=== PATIENT | female | born 1990 | race American Indian/Alaskan Native ===

== ENCOUNTER 2017-12-24 20:08 | Emergency (ER) | payer MEDICAID, OTHER ==
[2017-12-24] MEDS ORDERED: Tetracaine HCl/PF 0.5% 4 ML Bottle EYERT ONE (21:04)
--- NOTE | 2017-12-24 21:31 | EDM.PDOC ---
ED HPI GENERAL MEDICAL PROBLEM - General Chief Complaint: Eye Problems Stated Complaint: R EYE INJURY Time Seen by Provider: 12/24/17 21:15 Source of Information: Reports: Patient, RN History Limitations: Reports: No Limitations - History of Present Illness INITIAL COMMENTS - FREE TEXT/NARRATIVE: 27 yo female here with R eye pain after being poked in the eye by her toddler son's finger. Has tearing and light sensitivity. Vision is blurry. Left her eye glasses in her car. Says he tetanus is UTD. Onset: Today Onset Date: 12/24/17 Onset Time: 20:30 Duration: Minutes:, Constant Location: Reports: Face (R eye) Quality: Reports: Burning Severity: Moderate Improves with: Reports: Other (eye closing) Worsens with: Reports: Other (lights) Context: Reports: Other (poked in R eye) Associated Symptoms: Reports: No Other Symptoms Treatments FLAT KNITTER: Reports: Other (see below) (none) - Related Data Allergies Allergy/AdvReac Type Severity Reaction Status Date / Time amoxicillin Allergy Other Verified 12/24/17 20:51 ibuprofen Allergy Nausea Verified 12/24/17 20:51 Home Meds: Home Meds Levothyroxine 1 tab PO DAILY 12/24/17 [History] 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: Endocrine/Metabolic History: Reports: Hypothyroidism - Infectious Disease History Infectious Disease History: Reports: Chicken Pox - Past Surgical History Endocrine Surgical History: Reports: None Social & Family History - Family History Family Medical History: Noncontributory - Tobacco Use Smoking Status *Q: Never Smoker - Caffeine Use Caffeine Use: Reports: Soda - Recreational Drug Use Recreational Drug Use: No ED ROS GENERAL - Review of Systems Review Of Systems: See Below Constitutional: Reports: No Symptoms HEENT: Reports: Eye Pain (Right), Rhinitis (runny nose and eye tearing) Respiratory: Reports: No Symptoms Cardiovascular: Reports: No Symptoms GI/Abdominal: Reports: No Symptoms : Reports: No Symptoms Skin: Reports: No Symptoms Neurological: Reports: No Symptoms ED EXAM GENERAL W FULL EYE - Physical Exam Exam: See Below Exam Limited By: No Limitations General Appearance: Alert, WD/WN, No Apparent Distress, Obese Eye Exam: Bilateral Eye: PERRL, Other (conjunctival injection OD, photophobia) With Correction: No Eyelids: Bilateral: Normal Appearance Conjunctiva & Sclera: Right: Injected Cornea Exam: Right: Corneal Abrasion, Examined with Flourescein Extraocular Movements: Bilateral: Intact Pupillary Size: Bilateral: 2 mm Pupillary Reaction: Bilateral: Brisk Ears: Normal External Exam, Hearing Grossly Normal Nose: Normal Inspection, Normal Mucosa, No Blood Head: Atraumatic, Normocephalic Neck: Normal Inspection Neurological: Alert, Oriented, CN II-XII Intact, Normal Cognition, No Motor/ Sensory Deficits Psychiatric: Normal Affect, Normal Mood Skin Exam: Warm, Dry, Intact, Normal Color, No Rash ED EYE w/ Add Procedure - Eye Procedure Alcaine Drops Administered: Yes (Tetracaine to R eye 2 drops) Progress: Flurescein staining reveals corneal abrasion extending from the pupil's lower edge and downward to the bottom of the cornea. Course - Vital Signs Last Recorded V/S: Last Vital Signs Temp 36.5 C 12/24/17 20:57 Pulse 82 12/24/17 20:57 Resp 18 12/24/17 20:57 BP 148/101 H 12/24/17 20:57 Pulse Ox 98 12/24/17 20:57 - Orders/Labs/Meds Meds: Medications Discontinued Medications Generic Name Dose Route Start Last Admin Trade Name Freq PRN Reason Stop Dose Admin Tetracaine HCl 0.5 ml 12/24/17 21:04 12/24/17 21:24 Tetracaine 0.5% Steri-Unit Marii EYERT 12/24/17 21:05 0.5 ml ASDIRECTED ONE Administration Departure - Departure Time of Disposition: 21:34 Disposition: Home, Self-Care 01 Condition: Good Clinical Impression: Corneal abrasion Qualifiers: Encounter type: initial encounter Laterality: right Qualified Code(s): S05.01XA - Injury of conjunctiva and corneal abrasion without foreign body, right eye, initial encounter - Discharge Information Referrals: Keren Man PA [Primary Care Provider] - Forms: ED Department Discharge Additional Instructions: No rubbing your right eye. Avoid bright lights. Take norco as needed for pain relief. May use the eye drops tonight only as needed to help you sleep. Recheck if not fully recovered in 24 hrs.
== END 2017-12-24 21:35 | disposition home or self-care (01) ==
LOC: JP.ED 20:08
DX: S05.01XA Injury of conjunctiva and corneal abrasion without foreign body, right eye, initial encounter (principal); Z88.1 Allergy status to other antibiotic agents; Z88.6 Allergy status to analgesic agent; W51.XXXA Accidental striking against or bumped into by another person, initial encounter
CPT/HCPCS: 99283; A9270

== ENCOUNTER 2020-06-25 16:45 | Emergency (ER) | payer MEDICAID ==
--- NOTE | 2020-06-25 17:37 | EDM.PDOC ---
ED HPI GENERAL MEDICAL PROBLEM - General Chief Complaint: Headache Stated Complaint: HEADACHE THAT WILL NOT GO AWAY Time Seen by Provider: 06/25/20 17:36 Source of Information: Reports: Patient, Family, RN Notes Reviewed History Limitations: Reports: No Limitations - History of Present Illness INITIAL COMMENTS - FREE TEXT/NARRATIVE: Margaux presents today for complaints of headache for 7 days. She states she was seen at another emergency room last night and was given two shots in her butt with two pills. She states the medications did not help her pain. Margaux reports frequent headaches that can make it difficulty to get her daily tasks done. She reports throbbing like pain from the top back of her head with radiation to eyes. She reports nausea, some photophobia and dizziness with her headaches. She denies tinnitus or change in vision. She denies fever, chills, vomiting, change in bowel/bladder or other concerns. She is unsure of her LMP - states she could be . She has a history of hyopthyroidism from , states she was not born with a thyroid. 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 Denies: Dental Pain, Ear Discharge, Ear Pain, Hearing Loss, Nose Pain, Rhinitis, Sinus Problem, Throat Pain, Vertigo Respiratory: Reports: No Symptoms Cardiovascular: Reports: No Symptoms Endocrine: Reports: No Symptoms GI/Abdominal: Reports: No Symptoms : Reports: No Symptoms Musculoskeletal: Reports: No Symptoms Skin: Reports: No Symptoms Neurological: Reports: Dizziness, Headache. Denies: Confusion, Numbness, Paresthesia, Pre-Existing Deficit, Seizure, Tingling, Tremors, Trouble Speaking, Difficulty Walking, Weakness, Change in Speech, Gait Disturbance Psychiatric: Reports: No Symptoms Hematologic/Lymphatic: Reports: No Symptoms Immunologic: Reports: No Symptoms - Physical Exam Exam: See Below Exam Limited By: No Limitations General Appearance: Alert, WD/WN, Mild Distress Eye Exam: Bilateral Eye: EOMI, Normal Inspection, PERRL Ears: Normal External Exam, Normal Canal, Hearing Grossly Normal, Normal TMs Nose: Normal Inspection, Normal Mucosa, No Blood Throat/Mouth: Normal Inspection, Normal Lips, Normal Teeth, Normal Gums, Normal Voice, No Airway Compromise Head Exam: Atraumatic, Normocephalic Neck: Normal Inspection, Supple, Non-Tender, Full Range of Motion, Other (spasms to posterior neck, trapezius). No: Lymphadenopathy (R), Lymphadenopathy (L) Respiratory/Chest: No Respiratory Distress, Lungs Clear, Normal Breath Sounds, No Accessory Muscle Use, Chest Non-Tender. No: Crackles, Rales, Rhonchi, Wheezing Cardiovascular: Normal Peripheral Pulses, Regular Rate, Rhythm, No Edema, No Murmur, No Rub Neuro Exam (Abbreviated): Alert, Oriented, Normal Cognition, Normal Gait, Normal Reflexes, No Motor/Sensory Deficits, Other (no nuchal rigidity, negative Brudzinski. ) DTR: 2+: Patella (R), Patella (L) Back Exam: Normal Inspection, Full Range of Motion, Muscle Spasm (cervical and trapezius). No: CVA Tenderness (R), CVA Tenderness (L) Extremities: Normal Inspection, Normal Range of Motion, Non-Tender, No Pedal Edema, Normal Capillary Refill Psychiatric: Normal Affect, Normal Mood Skin Exam: Warm, Dry, Intact, Normal Color, No Rash Course - Vital Signs Last Recorded V/S: Last Vital Signs Temp 36.4 C 06/25/20 17:29 Pulse 92 06/25/20 17:29 Resp 14 06/25/20 17:29 BP 152/96 H 06/25/20 17:29 Pulse Ox 98 06/25/20 17:29 - Orders/Labs/Meds Orders: Active Orders 24 hr Category Date Time Status Saline Lock Insert [OM.PC] Routine Oth 06/25/20 17:58 Ordered Labs: Laboratory Tests 06/25/20 06/25/2006/25/20 Range/Units 18:05 18:06 18:06 WBC (4.5-11.0) K/uL RBC (3.30-5.50) M/uL Hgb (12.0-15.0) g/dL Hct (36.0-48.0) % MCV (80-98) fL MCH (27-31) pg MCHC (32-36) % Plt Count (150-400) K/uL Neut % (Auto) (36-66) % Lymph % (Auto) (24-44) % [place] % (Auto) (2-6) % Eos % (Auto) (2-4) % Baso % (Auto) (0-1) % Sodium (140-148) mmol/L Potassium (3.6-5.2) mmol/L Chloride (100-108) mmol/L Carbon Dioxide (21-32) mmol/L Anion Gap (5.0-14.0) mmol/L BUN (7-18) mg/dL Creatinine (0.6-1.0) mg/dL Est Cr Clr Drug Dosing mL/min Estimated GFR (MDRD) (>60) Glucose (74-106) mg/dL Calcium (8.5-10.1) mg/dL C-Reactive Protein 1.84 H (0.0-0.3) mg/dL TSH, Ultra Sensitive (0.358-3.740) uIU/mL Urine Color Yellow (YELLOW) Urine Appearance Clear (CLEAR) Urine pH 6.0 (5.0-8.0) Ur Specific [place] > 1.030 (1.008-1.030) Urine Protein Negative (NEGATIVE) mg/dL Urine Glucose (UA) Negative (NEGATIVE) mg/dL Urine Ketones Negative (NEGATIVE) mg/dL Urine Occult Blood Negative (NEGATIVE) Urine Nitrite Negative (NEGATIVE) Urine Bilirubin Negative (NEGATIVE) Urine Urobilinogen 0.2 (0.2-1.0) EU/dL Ur Leukocyte Esterase Negative (NEGATIVE) Urine RBC Not seen (0-5) Urine WBC Not seen (0-5) Ur Epithelial Cells Moderate Urine Bacteria Not seen Urine HCG, Qual Negative 06/25/20 06/25/20 Range/Units 18:14 18:14 WBC 15.0 H (4.5-11.0) K/uL RBC 5.06 (3.30-5.50) M/uL Hgb 11.2 L (12.0-15.0) g/dL Hct 37.4 (36.0-48.0) % MCV 74 L (80-98) fL MCH 22 L (27-31) pg MCHC 30 L (32-36) % Plt Count 472 H (150-400) K/uL Neut % (Auto) 66 (36-66) % Lymph % (Auto) 25 (24-44) % [place] % (Auto) 7 H (2-6) % Eos % (Auto) 2 (2-4) % Baso % (Auto) 0 (0-1) % Sodium 137 L (140-148) mmol/L Potassium 4.1 (3.6-5.2) mmol/L Chloride 102 (100-108) mmol/L Carbon Dioxide 26 (21-32) mmol/L Anion Gap 13.1 (5.0-14.0) mmol/L BUN 20 H (7-18) mg/dL Creatinine 0.8 (0.6-1.0) mg/dL Est Cr Clr Drug Dosing 105.61 mL/min Estimated GFR (MDRD) > 60 (>60) Glucose 126 H (74-106) mg/dL Calcium 9.2 (8.5-10.1) mg/dL C-Reactive Protein (0.0-0.3) mg/dL TSH, Ultra Sensitive 9.710 H (0.358-3.740) uIU/mL Urine Color (YELLOW) Urine Appearance (CLEAR) Urine pH (5.0-8.0) Ur Specific [place] (1.008-1.030) Urine Protein (NEGATIVE) mg/dL Urine Glucose (UA) (NEGATIVE) mg/dL Urine Ketones (NEGATIVE) mg/dL Urine Occult Blood (NEGATIVE) Urine Nitrite (NEGATIVE) Urine Bilirubin (NEGATIVE) Urine Urobilinogen (0.2-1.0) EU/dL Ur Leukocyte Esterase (NEGATIVE) Urine RBC (0-5) Urine WBC (0-5) Ur Epithelial Cells Urine Bacteria Urine HCG, Qual Patient lab work reviewed with Dr. Dempsey and patient. WBC, CRP elevated which can be secondary to migraine status for 7 days. Neurological status intact, no recent infections. Patient and Dr. Dempsey are in agreement with plan. Headache in alert, oriented 29 year old female who is neurologically intact, OTC medications and interventions from last night emergency room visit did not help with pain. IV normal saline, benadryl, reglan, acetaminophen and diazepam administered in the emergency room with good relief of pain. Patient will be discharged to home. Meds: Medications Discontinued Medications Generic Name Dose Route Start Last Admin Trade Name Marcelinoq PRN Reason Stop Dose Admin Acetaminophen 1,000 mg 06/25/20 18:02 06/25/20 18:20 Tylenol Extra Strength PO 06/25/20 18:03 1,000 mg ONETIME ONE Administration Diazepam 5 mg 06/25/20 19:39 06/25/20 19:47 Valium IVPUSH 06/25/20 19:40 5 mg ONETIME ONE Administration Diphenhydramine HCl 25 mg 06/25/20 18:00 06/25/20 18:17 Benadryl IVPUSH 06/25/20 18:01 25 mg ONETIME ONE Administration Sodium Chloride 1,000 mls @ 999 mls/hr 06/25/20 18:30 06/25/20 18:25 Normal Saline IV 999 mls/hr ASDIRECTED WHIT Administration Sodium Chloride 1,000 mls @ 150 mls/hr 06/25/20 18:45 06/25/20 19:06 Normal Saline IV 150 mls/hr ASDIRECTED WHIT Administration Sodium Chloride 1,000 mls @ 150 mls/hr 06/25/20 19:15 Normal Saline IV ASDIRECTED WHIT Metoclopramide HCl 5 mg 06/25/20 18:00 06/25/20 18:18 Reglan IVPUSH 06/25/20 18:01 5 mg ONETIME ONE Administration Sodium Chloride 10 ml 06/25/20 17:58 06/25/20 18:11 Saline Flush FLUSH 10 ml ASDIRECTED PRN Administration Keep Vein Open Sumatriptan Succinate 6 mg 06/25/20 18:54 06/25/20 19:03 Imitrex SUBCUT 06/25/20 18:55 6 mg ONETIME ONE Administration - Re-Assessments/Exams Free Text/Narrative Re-Assessment/Exam: 06/25/20 18:57 Margaux reports pain is now a 5 from a 03/18. Patient lab work reviewed with her, all her questions were answered. We will try imitrex for her headache/migraine. 06/25/20 19:41 Margaux reports headache is now a 4/10 and she is feeling better. We will administer valium 5mg IV. Departure - Departure Time of Disposition: 20:20 Disposition: Home, Self-Care 01 Condition: Good Clinical Impression: Migraine - Discharge Information *PRESCRIPTION DRUG MONITORING PROGRAM REVIEWED*: Not Applicable *COPY OF PRESCRIPTION DRUG MONITORING REPORT IN PATIENT VINCE: Not Applicable Instructions: Migraine Headache, [id number] Referrals: PCP,None [Primary Care Provider] - Forms: ED Department Discharge Additional Instructions: You have been evaluated and treated for a migraine. While in the emergency room you were given IV normal saline fluids, IV reglan for nausea, acetaminophen by mouth for pain, Imitrex injection for pain and valium IV for muscle spasms of trapezius. Drink plenty of water to stay hydrated. Take naproxen 500mg by mouth with food at the first sign of a headache/migraine and rest. If nausea, develops then take phenergen 25mg by mouth. You can also take flexeril 10mg for muscle spasms. Follow up with primary provider in 3 to 7 days for a recheck. Track and monitor migraines. If any worsening occurs return to the emergency room. Sepsis Event Note (ED) - Evaluation Sepsis Screening Result: No Definite Risk - Focused Exam Vital Signs: Vital Signs Temp Pulse Resp BP Pulse Ox 06/25/20 17:29 36.4 C 92 14 152/96 H 98 - My Orders Last 24 Hours: My Active Orders 06/25/20 17:58 Saline Lock Insert [OM.PC] Routine - Assessment/Plan Last 24 Hours: My Active Orders 06/25/20 17:58 Saline Lock Insert [OM.PC] Routine Assessment:: Migraine Plan: Patient evaluated and treated for a migraine. While in the emergency room she was given IV normal saline fluids, IV reglan for nausea, acetaminophen by mouth for pain, Imitrex injection for pain and valium IV for muscle spasms of trapezius. Improvement noted. Patient can drink plenty of water to stay hydrated. Take naproxen 500mg by mouth with food at the first sign of a headache/migraine and rest. If nausea, develops then take phenergen 25mg by mouth. She can also take flexeril 10mg for muscle spasms. Follow up with primary provider in 3 to 7 days for a recheck. Track and monitor migraines. If any worsening occurs return to the emergency room.
[2020-06-25] MEDS ORDERED: Sodium Chloride 0.9% 10 ML Syringe FLUSH PRN (17:58)
[2020-06-25] MEDS ORDERED: diphenhydrAMINE 50 MG/ML SDV IVPUSH ONE (18:00)
[2020-06-25] MEDS ORDERED: Metoclopramide 10 MG/2 ML SDV IVPUSH ONE (18:00)
[2020-06-25] MEDS ORDERED: Acetaminophen 500 MG Tab PO ONE (18:02)
[2020-06-25] MEDS ORDERED: Sodium Chloride 0.9% 1,000 ML IV SCH ×3 (18:30→19:15)
[2020-06-25] MEDS ORDERED: SUMAtriptan 6 MG/0.5 ML SDV SUBCUT ONE (18:54)
== END 2020-06-25 20:37 | disposition home or self-care (01) ==
LOC: JP.ED 16:45
DX: G43.909 Migraine, unspecified, not intractable, without status migrainosus (principal); E03.9 Hypothyroidism, unspecified; M62.830 Muscle spasm of back; Z88.1 Allergy status to other antibiotic agents; Z88.6 Allergy status to analgesic agent; Z79.899 Other long term (current) drug therapy
CPT/HCPCS: 36415; 80048; 81001; 81025; 84443; 85025; 86140; 96372; 96374; 96375; 99283; A9270; J1200; J2765; J3030; J3360; J7030

== ENCOUNTER → 2021-11-28 | Day surgery (SDC) | payer MEDICAID ==
[~2021-11-28] MED LIST: Acetaminophen 500 MG Tab PO ONE; Celecoxib 200 MG Cap PO ONE; Dexamethasone 4 MG/ML SDV ONE; Dextrose 5%-Lactated Ringers 1,000 ML IV SCH; Glycopyrrolate 0.2 MG/ML 5 ML MDV ONE; Ketamine 19 MG in Sodium Chloride 0.9% 19.81 ML IV SCH; Ketamine 20 MG in Sodium Chloride 0.9% 19.8 ML IV SCH; Ketamine 500 MG/5 ML MDV IV SCH; Lactated Ringers 0 ML ONE; Neostigmine Methylsulfate 1 MG/ML 5 ML Syringe ONE; Ondansetron 4 MG/2 ML SDV ONE; Propofol 200 MG/20 ML SDV ONE; Rocuronium 50 MG/5 ML Vial ONE; Scopolamine 1.5 MG Transdermal Patch TOP ONE; Scopolamine 1.5 MG Transdermal Patch TOP SCH; Succinylcholine 200 MG/10 ML MDV ONE; cefOXitin 2 GM Vial ONE; cefOXitin 2 GM in Sodium Chloride 0.9% 50 ML IV ONE; fentaNYL 250 MCG/5 ML SDV ONE
== END ==
LOC: JP.SDS 08:38
PROVIDERS: ATTEND Surgery
DX: E66.01 Morbid (severe) obesity due to excess calories (principal); G47.30 Sleep apnea, unspecified; E03.9 Hypothyroidism, unspecified; D50.9 Iron deficiency anemia, unspecified; Z88.0 Allergy status to penicillin; Z88.8 Allergy status to other drugs, medicaments and biological substances; Z88.6 Allergy status to analgesic agent; Z68.45 Body mass index [BMI] 70 or greater, adult; Z79.890 Hormone replacement therapy; Z79.84 Long term (current) use of oral hypoglycemic drugs; Z79.899 Other long term (current) drug therapy; Z87.891 Personal history of nicotine dependence; Z53.09 Procedure and treatment not carried out because of other contraindication
CPT/HCPCS: 36415; 81025; 82947; 83036; 83735; 84100; 84443; 86850; 86900; 86901; A9270; J7121; J0330; J0694; J1100; J2405; J2704; J2710; J3010; J3490; J7120

== ENCOUNTER 2021-11-30 08:06 | Inpatient (IN) | payer MEDICAID ==
[~2021-11-30 08:06] MED LIST changes: -Dextrose 5%-Lactated Ringers 1,000 ML IV SCH; -Ketamine 19 MG in Sodium Chloride 0.9% 19.81 ML IV SCH; -Ketamine 20 MG in Sodium Chloride 0.9% 19.8 ML IV SCH; -Ketamine 500 MG/5 ML MDV IV SCH; -Lactated Ringers 0 ML ONE; +Lactated Ringers 1,000 ML ONE; -Scopolamine 1.5 MG Transdermal Patch TOP ONE; -Scopolamine 1.5 MG Transdermal Patch TOP SCH; +Scopolamine 1.5 MG Transdermal Patch TRDERM SCH; -cefOXitin 2 GM in Sodium Chloride 0.9% 50 ML IV ONE
[2021-11-30] MEDS ORDERED: Dextrose 5%-Lactated Ringers 1,000 ML IV SCH (08:30)
[2021-11-30 08:48] LABS: HEMOGLOBIN A1C 6.9 % (4.5-6.2)
[2021-11-30] MEDS ORDERED: cefOXitin 2 GM in Sodium Chloride 0.9% 50 ML IV ONE (09:15)
[2021-11-30] MEDS ORDERED: Ketamine 19 MG in Sodium Chloride 0.9% 19.81 ML IV SCH (09:30)
[2021-11-30] MEDS ORDERED: Ketamine 500 MG/5 ML MDV IV SCH (09:30)
[2021-11-30] MEDS ORDERED: Propofol 200 MG/20 ML SDV ONE (09:49)
[2021-11-30] MEDS ORDERED: fentaNYL 250 MCG/5 ML SDV ONE ×2 (10:07→15:10)
[2021-11-30] MEDS ORDERED: Rocuronium 50 MG/5 ML Vial ONE (10:07)
[2021-11-30] MEDS ORDERED: Labetalol 20 MG/4 ML Syringe ONE ×2 (11:50→15:32)
[2021-11-30] MEDS ORDERED: Sugammadex Sodium 200 MG/2 ML VIAL ONE (12:33)
[2021-11-30] MEDS ORDERED: fentaNYL 100 MCG/2 ML SDV IVPUSH ONE (12:55)
[2021-11-30] MEDS ORDERED: hydrOXYzine HCL 100 MG/2 ML SDV IM ONE (12:55)
[2021-11-30] MEDS: Lactated Ringers 1,000 ML IV SCH ×2 (13:56→23:32)
[2021-11-30] MEDS: Dextrose 5%-Lactated Ringers 1,000 ML IV SCH (13:56)
[2021-11-30] MEDS ORDERED: hydrOXYzine HCL 100 MG/2 ML SDV IM PRN (15:00)
[2021-11-30] MEDS ORDERED: HYDROmorphone 0.5 MG/0.5 ML Syringe IVPUSH PRN (15:00)
[2021-11-30] MEDS ORDERED: Labetalol 20 MG/4 ML Syringe IVPUSH PRN (15:00)
[2021-11-30] MEDS ORDERED: HYDROmorphone 1 MG/ML Syringe IV PRN (15:00)
[2021-11-30] MEDS ORDERED: diphenhydrAMINE 50 MG/ML SDV IVPUSH PRN (15:00)
[2021-11-30] MEDS ORDERED: Acetaminophen 500 MG Tab PO PRN (15:00)
[2021-11-30] MEDS ORDERED: Pantoprazole 40 MG Vial IVPUSH SCH (15:00)
[2021-11-30] MEDS ORDERED: MVI, Adult with Vitamin K 10 ML, Thiamine 200 MG, Zinc/Copper/Manganese/Selenium 1 ML i... IV SCH ×4 (16:00)
[2021-11-30] MEDS: oxyCODONE 5 MG Tab PO PRN (16:08)
[2021-11-30] MEDS: Ondansetron 4 MG/2 ML SDV IVPUSH PRN ×2 (16:11→21:36)
[2021-11-30] MEDS: cefOXitin 2 GM in Sodium Chloride 0.9% 50 ML IV SCH ×2 (16:11→21:36)
[2021-11-30] MEDS: Cyclobenzaprine 10 MG Tab PO PRN (16:11)
[2021-11-30] MEDS: Acetaminophen 500 MG Tab PO SCH ×2 (16:15→23:36)
[2021-11-30] MEDS: Insulin Lispro 100 Unit/ML 3 ML KwikPen SUBCUT SCH ×2 (16:33→21:52)
[2021-11-30] MEDS: Heparin Sodium 5,000 Units/ML Vial SUBCUT SCH (17:29)
[2021-12-01] MEDS: oxyCODONE 5 MG Tab PO PRN (01:15)
[2021-12-01] MEDS: Dextrose 5%-Lactated Ringers 1,000 ML IV SCH (01:18)
[2021-12-01] MEDS: Cyclobenzaprine 10 MG Tab PO PRN ×3 (03:02→21:47)
[2021-12-01] MEDS: cefOXitin 2 GM in Sodium Chloride 0.9% 50 ML IV SCH ×4 (03:02→21:52)
[2021-12-01] MEDS ORDERED: Iopamidol 612 MG/ML 50 ML SDV PO STA (03:09)
[2021-12-01] MEDS: Metoclopramide 10 MG/2 ML SDV IVPUSH PRN ×3 (04:08→17:56)
[2021-12-01] MEDS: Insulin Lispro 100 Unit/ML 3 ML KwikPen SUBCUT SCH ×4 (04:58→21:49)
[2021-12-01] MEDS: Heparin Sodium 5,000 Units/ML Vial SUBCUT SCH ×2 (05:12→18:04)
[2021-12-01] MEDS: LEVOTHYROXINE PO SCH ×2 (07:24)
[2021-12-01] MEDS: Acetaminophen 500 MG Tab PO SCH ×3 (07:25→23:08)
[2021-12-01] MEDS: Ondansetron 4 MG/2 ML SDV IVPUSH PRN ×3 (08:07→23:28)
[2021-12-01] MEDS: Celecoxib 200 MG Cap PO SCH ×2 (08:08→21:47)
[2021-12-01] MEDS: traMADol 50 MG Tab PO PRN ×2 (08:08→13:56)
[2021-12-01] MEDS: Lactated Ringers 1,000 ML IV SCH ×2 (08:09→14:39)
[2021-12-01] MEDS: SCOPOLAMINE PATCH CHECK TOP SCH (08:18)
[2021-12-01] MEDS ORDERED: MVI, Adult with Vitamin K 10 ML, Thiamine 200 MG, Zinc/Copper/Manganese/Selenium 1 ML i... IV SCH ×4 (16:00)
[2021-12-01] MEDS: Pantoprazole 40 MG Delayed-Release Granules 1 Packet PO SCH (16:15)
[2021-12-02] MEDS: Lactated Ringers 1,000 ML IV SCH ×2 (03:07→13:59)
[2021-12-02] MEDS: Insulin Lispro 100 Unit/ML 3 ML KwikPen SUBCUT SCH (04:30)
[2021-12-02] MEDS: Heparin Sodium 5,000 Units/ML Vial SUBCUT SCH ×2 (05:02→17:48)
[2021-12-02] MEDS: LEVOTHYROXINE PO SCH ×2 (07:36)
[2021-12-02] MEDS: Metoclopramide 10 MG/2 ML SDV IVPUSH SCH ×3 (08:11→20:19)
[2021-12-02] MEDS: Acetaminophen 500 MG Tab PO SCH ×2 (08:12→15:50)
[2021-12-02] MEDS: SCOPOLAMINE PATCH CHECK TOP SCH (08:46)
[2021-12-02] MEDS: Celecoxib 200 MG Cap PO SCH ×2 (08:51→20:18)
[2021-12-02] MEDS ORDERED: Cyanocobalamin (Vitamin B12) 1,000 MCG/ML SDV IM ONE (09:00)
[2021-12-02] MEDS: Pantoprazole 40 MG Delayed-Release Granules 1 Packet PO SCH (15:50)
[2021-12-02] MEDS ORDERED: diphenhydrAMINE 50 MG/ML SDV IVPUSH PRN (17:10)
[2021-12-02] MEDS ORDERED: Cyclobenzaprine 10 MG Tab ONE (17:45)
[2021-12-02] MEDS ORDERED: oxyCODONE 5 MG Tab ONE (17:45)
[2021-12-02] MEDS: oxyCODONE 5 MG Tab PO PRN (17:48)
[2021-12-02] MEDS: Cyclobenzaprine 10 MG Tab PO PRN (17:48)
[2021-12-03] MEDS: Acetaminophen 500 MG Tab PO SCH ×2 (00:08→07:27)
[2021-12-03] MEDS: Lactated Ringers 1,000 ML IV SCH (00:10)
[2021-12-03] MEDS: Metoclopramide 10 MG/2 ML SDV IVPUSH SCH ×2 (02:44→07:27)
[2021-12-03] MEDS: Heparin Sodium 5,000 Units/ML Vial SUBCUT SCH (05:06)
[2021-12-03] MEDS: LEVOTHYROXINE PO SCH ×2 (07:26)
[2021-12-03] MEDS: Celecoxib 200 MG Cap PO SCH (08:25)
[2021-12-03] MEDS ORDERED: Magnesium Hydroxide 400 MG/5 ML Susp 30 ML Cup PO ONE (09:00)
== END 2021-12-03 10:35 | disposition home or self-care (01) | DRG 621 ==
LOC: JP.SDS 08:06 → JP.MS 08:06 → EDSTATUS 12:45 → JP.MS 12-02 17:26
PROVIDERS: ADMIT Surgery; ATTEND Surgery
PROC: 0D194ZB Bypass Duodenum to Ileum, Percutaneous Endoscopic Approach (ICD-10-PCS; principal; 2021-11-30)
PROC: 0FB24ZX Excision of Left Lobe Liver, Percutaneous Endoscopic Approach, Diagnostic (ICD-10-PCS; 2021-11-30)
PROC: 0BQT4ZZ Repair Diaphragm, Percutaneous Endoscopic Approach (ICD-10-PCS; 2021-11-30)
DX: E66.01 Morbid (severe) obesity due to excess calories (principal); R16.0 Hepatomegaly, not elsewhere classified; K44.9 Diaphragmatic hernia without obstruction or gangrene; E03.1 Congenital hypothyroidism without goiter; F41.9 Anxiety disorder, unspecified; F32.A Depression, unspecified; G47.39 Other sleep apnea; E11.9 Type 2 diabetes mellitus without complications; E03.9 Hypothyroidism, unspecified; D50.9 Iron deficiency anemia, unspecified; Z88.0 Allergy status to penicillin; Z88.6 Allergy status to analgesic agent; Z88.8 Allergy status to other drugs, medicaments and biological substances; Z79.890 Hormone replacement therapy; Z79.84 Long term (current) use of oral hypoglycemic drugs; Z79.899 Other long term (current) drug therapy; Z87.891 Personal history of nicotine dependence; Z68.45 Body mass index [BMI] 70 or greater, adult
CPT/HCPCS: 36415; 74240; 74240-26; 80053; 82947; 83036; 83735; 84100; 84443; 85027; 86850; 86900; 86901; A9270-GY; C9113; J0171; J0330; J0694; J1100; J1644; J2405; J2704; J2710; J2765; J2795; J3010; J3410; J3411; J3420; J3490; J7120; J7121; Q9967

== ENCOUNTER 2022-01-18 16:24 | Emergency (ER) | payer MEDICAID ==
[2022-01-18] MEDS ORDERED: Ampicillin/Sulbactam Na 3 GM in Sodium Chloride 0.9% 100 ML IV ONE (17:25)
[2022-01-18] MEDS ORDERED: methylPREDNISolone Sodium Succinate 125 MG/2 ML SDV IVPUSH ONE (17:25)
[2022-01-18] MEDS ORDERED: Pantoprazole 40 MG Vial IVPUSH ONE (17:28)
[2022-01-18] MEDS ORDERED: Alum Hydrox/Mag Hydrox/Simeth 15 ML, Lidocaine 2% 15 ML PO ONE ×2 (17:29)
[2022-01-18] MEDS ORDERED: Sodium Chloride 0.9% 1,000 ML IV SCH (17:30)
== END 2022-01-18 19:18 | disposition home or self-care (01) ==
LOC: JP.ED 16:24
DX: J03.00 Acute streptococcal tonsillitis, unspecified (principal); E03.9 Hypothyroidism, unspecified; Z88.0 Allergy status to penicillin; Z88.8 Allergy status to other drugs, medicaments and biological substances; Z79.899 Other long term (current) drug therapy
CPT/HCPCS: 96365; 96375; 99283; A9270; C9113; J0295; J2930; J7030; 99282

== ENCOUNTER → 2022-06-18 | Day surgery (SDC) | payer MEDICAID ==
[~2022-06-18] MED LIST changes: +Bupivacaine 0.5% 50 ML MDV ONE; -Celecoxib 200 MG Cap PO ONE; -Dexamethasone 4 MG/ML SDV ONE; +Dextrose 5%-Lactated Ringers 1,000 ML IV SCH; -Glycopyrrolate 0.2 MG/ML 5 ML MDV ONE; -Lactated Ringers 1,000 ML ONE; +Lidocaine 1% with EPINEPHrine 1:100,000 50 ML MDV ONE; +Midazolam 1 MG/ML 2 ML SDV ONE; -Neostigmine Methylsulfate 1 MG/ML 5 ML Syringe ONE; -Ondansetron 4 MG/2 ML SDV ONE; -Rocuronium 50 MG/5 ML Vial ONE; -Scopolamine 1.5 MG Transdermal Patch TRDERM SCH; -Succinylcholine 200 MG/10 ML MDV ONE; +ceFAZolin 2 GM in Sodium Chloride 0.9% 50 ML IV ONE; -cefOXitin 2 GM Vial ONE; +fentaNYL 100 MCG/2 ML SDV ONE; -fentaNYL 250 MCG/5 ML SDV ONE
== END ==
LOC: JP.SDS 06:00
PROVIDERS: ATTEND Surgery
DX: Z30.46 Encounter for surveillance of implantable subdermal contraceptive (principal); F41.9 Anxiety disorder, unspecified; F32.A Depression, unspecified; E11.9 Type 2 diabetes mellitus without complications; G47.33 Obstructive sleep apnea (adult) (pediatric); Z79.899 Other long term (current) drug therapy; Z98.890 Other specified postprocedural states; Z88.6 Allergy status to analgesic agent; Z88.8 Allergy status to other drugs, medicaments and biological substances
CPT/HCPCS: 11976; 76000; 81025; A9270; J0690; J2250; J2704; J3010; J3490; J7121

== ENCOUNTER 2022-07-08 07:33 | Emergency (ER) | payer MEDICAID ==
[2022-07-08] MEDS: Ketorolac 30 MG/ML SDV IM ONE (08:34)
[2022-07-08 08:50] LABS: ESTIMATED GFR 102 mL/min (>60)
== END 2022-07-08 09:24 | disposition home or self-care (01) ==
LOC: JP.ED 07:33
DX: M25.512 Pain in left shoulder (principal); I10 Essential (primary) hypertension; Z88.8 Allergy status to other drugs, medicaments and biological substances; Z88.6 Allergy status to analgesic agent; Z79.899 Other long term (current) drug therapy; Z86.16 Personal history of COVID-19; Z87.891 Personal history of nicotine dependence
CPT/HCPCS: 36415; 73030; 80053; 83605; 83690; 85025; 96372; 99283; J1885

== ENCOUNTER 2022-09-27 07:08 | Inpatient (IN) | payer MEDICAID ==
[~2022-09-27 07:08] MED LIST changes: -Dextrose 5%-Lactated Ringers 1,000 ML IV SCH; -Midazolam 1 MG/ML 2 ML SDV ONE; -Propofol 200 MG/20 ML SDV ONE; +Scopolamine 1.5 MG Transdermal Patch TRDERM ONE; -ceFAZolin 2 GM in Sodium Chloride 0.9% 50 ML IV ONE; -fentaNYL 100 MCG/2 ML SDV ONE
[2022-09-27] MEDS ORDERED: Meropenem 500 MG SDV ONE (07:11)
[2022-09-27] MEDS ORDERED: diphenhydrAMINE 50 MG/ML SDV IVPUSH PRN (07:44)
[2022-09-27] MEDS ORDERED: Ondansetron 4 MG/2 ML SDV IVPUSH PRN ×2 (07:44→12:22)
[2022-09-27] MEDS ORDERED: Naloxone 0.4 MG/ML SDV IVPUSH PRN (07:44)
[2022-09-27] MEDS ORDERED: diphenhydrAMINE 25 MG Cap PO PRN (07:44)
[2022-09-27] MEDS ORDERED: Propofol 200 MG/20 ML SDV ONE (07:58)
[2022-09-27] MEDS ORDERED: fentaNYL 250 MCG/5 ML SDV ONE (07:58)
[2022-09-27] MEDS ORDERED: Dexamethasone 4 MG/ML SDV ONE (07:58)
[2022-09-27] MEDS ORDERED: Succinylcholine 200 MG/10 ML MDV ONE (07:58)
[2022-09-27] MEDS ORDERED: Neostigmine Methylsulfate 1 MG/ML 5 ML Syringe ONE (07:58)
[2022-09-27] MEDS ORDERED: Ondansetron 4 MG/2 ML SDV ONE (07:58)
[2022-09-27] MEDS ORDERED: Rocuronium 50 MG/5 ML Vial ONE (07:58)
[2022-09-27] MEDS ORDERED: Glycopyrrolate 0.2 MG/ML 5 ML MDV ONE (07:58)
[2022-09-27] MEDS ORDERED: Dextrose 5%-Lactated Ringers 1,000 ML IV SCH ×2 (08:00→12:15)
[2022-09-27] MEDS ORDERED: cefOXitin 2 GM in Sodium Chloride 0.9% 50 ML IV ONE (08:45)
[2022-09-27] MEDS ORDERED: Ketoconazole 2% Crm 30 GM Tube ONE (09:29)
[2022-09-27] MEDS ORDERED: Ketamine 20 MG in Sodium Chloride 0.9% 19.8 ML IV SCH (09:30)
[2022-09-27] MEDS ORDERED: Ketamine 500 MG/5 ML MDV IV SCH (09:30)
[2022-09-27] MEDS ORDERED: ePHEDrine 50 MG/ML SDV ONE (09:48)
[2022-09-27] MEDS ORDERED: Sodium Chloride 0.9% 10 ML ONE (09:48)
[2022-09-27] MEDS: HYDROmorphone/Normal Saline 6 MG/30 ML PCA Vial IV PRN (09:50)
[2022-09-27] MEDS ORDERED: fentaNYL 100 MCG/2 ML SDV ONE (10:32)
[2022-09-27] MEDS ORDERED: Lactated Ringers 1,000 ML ONE (10:34)
[2022-09-27] MEDS: Potassium Phos in 0.9 % NaCl 15 MMOL in Premix Bag 1 BAG IV SCH ×6 (12:37→19:41)
[2022-09-27] MEDS: Acetaminophen 500 MG Tab PO SCH ×2 (14:21→19:40)
[2022-09-27] MEDS: Pantoprazole 40 MG Vial IV SCH (14:21)
[2022-09-27] MEDS: cefOXitin 2 GM in Sodium Chloride 0.9% 50 ML IV SCH ×2 (16:09→22:35)
[2022-09-27] MEDS: Heparin Sodium 5,000 Units/ML Vial SUBCUT SCH (19:50)
[2022-09-28] MEDS: SODIUM CHLORIDE 0.9% IV SCH ×2 (00:01→01:29)
[2022-09-28] MEDS: POTASSIUM ACETATE IV SCH ×2 (00:01→01:29)
[2022-09-28] MEDS: Acetaminophen 500 MG Tab PO SCH ×4 (01:30→20:46)
[2022-09-28] MEDS: Heparin Sodium 5,000 Units/ML Vial SUBCUT SCH ×3 (03:07→18:35)
[2022-09-28] MEDS: cefOXitin 2 GM in Sodium Chloride 0.9% 50 ML IV SCH ×3 (03:13→15:35)
[2022-09-28] MEDS: HYDROmorphone/Normal Saline 6 MG/30 ML PCA Vial IV PRN (04:01)
[2022-09-28 04:46] LABS: ESTIMATED GFR 78 mL/min (>60)
[2022-09-28] MEDS ORDERED: Lactated Ringers 500 ML IV SCH (07:45)
[2022-09-28] MEDS: Cyanocobalamin (Vitamin B12) 1,000 MCG/ML SDV IM SCH (08:24)
[2022-09-28] MEDS: Dextrose 5%-Lactated Ringers 1,000 ML IV SCH ×2 (10:45→19:55)
[2022-09-28] MEDS: Magnesium Sulfate/Water 2 GM/50 ML BAG IV SCH ×3 (11:29→22:08)
[2022-09-28] MEDS: MVI, Adult with Vitamin K 10 ML, Thiamine 200 MG, Zinc/Copper/Manganese/Selenium 1 ML i... IV SCH ×4 (14:11)
[2022-09-28] MEDS: Pantoprazole 40 MG Vial IV SCH (14:20)
[2022-09-29] MEDS: Acetaminophen 500 MG Tab PO SCH ×4 (02:28→19:33)
[2022-09-29] MEDS: Heparin Sodium 5,000 Units/ML Vial SUBCUT SCH ×3 (02:28→17:42)
[2022-09-29] MEDS: Dextrose 5%-Lactated Ringers 1,000 ML IV SCH (04:05)
[2022-09-29] MEDS: Magnesium Sulfate/Water 2 GM/50 ML BAG IV SCH ×4 (04:07→21:39)
[2022-09-29 05:16] LABS: ESTIMATED GFR 102 mL/min (>60)
[2022-09-29] MEDS: Potassium Phos in 0.9 % NaCl 15 MMOL in Premix Bag 1 BAG IV SCH ×6 (08:55→16:13)
[2022-09-29] MEDS: Docusate Sodium 100 MG Cap PO SCH ×2 (08:56→21:38)
[2022-09-29] MEDS: Cyanocobalamin (Vitamin B12) 1,000 MCG/ML SDV IM SCH (08:56)
[2022-09-29] MEDS: Potassium Chloride 20 MEQ Tab.ER PO SCH ×3 (08:56→17:41)
[2022-09-29] MEDS: Bisacodyl 5 MG Tab PO SCH ×2 (08:56→21:38)
[2022-09-29] MEDS: HYDROmorphone 2 MG Tab PO PRN ×2 (13:09→19:33)
[2022-09-29] MEDS: Pantoprazole 40 MG Vial IV SCH (13:15)
[2022-09-29] MEDS: hydrOXYzine HCL 100 MG/2 ML SDV IM PRN ×2 (14:50→21:02)
[2022-09-29] MEDS: MVI, Adult with Vitamin K 10 ML, Thiamine 200 MG, Zinc/Copper/Manganese/Selenium 1 ML i... IV SCH ×4 (15:16)
[2022-09-30] MEDS: Dextrose 5%-Lactated Ringers 1,000 ML IV SCH (00:04)
[2022-09-30] MEDS: Heparin Sodium 5,000 Units/ML Vial SUBCUT SCH (02:50)
[2022-09-30] MEDS: Acetaminophen 500 MG Tab PO SCH ×2 (02:50→07:28)
[2022-09-30] MEDS: Magnesium Sulfate/Water 2 GM/50 ML BAG IV SCH (04:06)
[2022-09-30] MEDS: HYDROmorphone 2 MG Tab PO PRN ×2 (04:06→08:28)
[2022-09-30] MEDS: Bisacodyl 5 MG Tab PO SCH (08:30)
[2022-09-30] MEDS: Docusate Sodium 100 MG Cap PO SCH (08:30)
[2022-09-30] MEDS: Cyanocobalamin (Vitamin B12) 1,000 MCG/ML SDV IM SCH (08:30)
== END 2022-09-30 09:55 | disposition home or self-care (01) | DRG 742 ==
LOC: JP.SDSSCHI 07:08 → JP.2SS 11:30 → JP.MS 09-28 19:19
PROVIDERS: ADMIT Surgery; ATTEND Surgery
PROC: 0UT90ZZ Resection of Uterus, Open Approach (ICD-10-PCS; principal; 2022-09-27)
PROC: 0UT00ZZ Resection of Right Ovary, Open Approach (ICD-10-PCS; 2022-09-27)
PROC: 0UT50ZZ Resection of Right Fallopian Tube, Open Approach (ICD-10-PCS; 2022-09-27)
PROC: 0WQF0ZZ Repair Abdominal Wall, Open Approach (ICD-10-PCS; 2022-09-27)
PROC: 3E0M05Z Introduction of Adhesion Barrier into Peritoneal Cavity, Open Approach (ICD-10-PCS; 2022-09-27)
DX: N93.8 Other specified abnormal uterine and vaginal bleeding (principal); K43.0 Incisional hernia with obstruction, without gangrene; K91.2 Postsurgical malabsorption, not elsewhere classified; Z68.41 Body mass index [BMI] 40.0-44.9, adult; N83.201 Unspecified ovarian cyst, right side; E03.1 Congenital hypothyroidism without goiter; F41.9 Anxiety disorder, unspecified; F32.A Depression, unspecified; E66.01 Morbid (severe) obesity due to excess calories; R73.03 Prediabetes; E53.8 Deficiency of other specified B group vitamins; E53.9 Vitamin B deficiency, unspecified; E55.9 Vitamin D deficiency, unspecified; E60 Dietary zinc deficiency; E50.9 Vitamin A deficiency, unspecified; G47.33 Obstructive sleep apnea (adult) (pediatric); Z79.890 Hormone replacement therapy; Z79.899 Other long term (current) drug therapy; Z98.84 Bariatric surgery status
CPT/HCPCS: 36415; 80048; 80053; 81025; 82947; 83735; 84100; 84443; 85025; 85027; 88112; 88302; 88305; 88307; A9270-GY; C9113; J0171; J0330; J0694; J1100; J1170; J1644; J2185; J2405; J2704; J2710; J2795; J3010; J3410; J3411; J3420; J3475; J3490; J7120; J7121

== ENCOUNTER 2022-10-04 15:44 | Emergency (ER) | payer MEDICAID ==
[2022-10-04] MEDS ORDERED: HYDROmorphone 0.5 MG/0.5 ML Syringe IM ONE (17:17)
== END 2022-10-04 18:00 | disposition home or self-care (01) ==
LOC: JP.ED 15:44
DX: N93.9 Abnormal uterine and vaginal bleeding, unspecified (principal); I10 Essential (primary) hypertension; K21.9 Gastro-esophageal reflux disease without esophagitis; E03.9 Hypothyroidism, unspecified; Z87.891 Personal history of nicotine dependence; Z88.8 Allergy status to other drugs, medicaments and biological substances; Z88.6 Allergy status to analgesic agent; Z79.899 Other long term (current) drug therapy
CPT/HCPCS: 36415; 85025; 96372; 99284; J1170

== ENCOUNTER 2022-10-04 21:50 | Inpatient (IN) | payer MEDICAID ==
[2022-10-04] MEDS ORDERED: Sodium Chloride 0.9% 10 ML Syringe FLUSH PRN (21:52)
[2022-10-04] MEDS ORDERED: HYDROmorphone 0.5 MG/0.5 ML Syringe IVPUSH ONE (21:57)
[2022-10-04] MEDS ORDERED: Lactated Ringers 1,000 ML IV ONE (21:57)
[2022-10-04] MEDS ORDERED: Piperacillin/Tazobactam 3.375 GM in Sodium Chloride 0.9% 50 ML IV ONE (22:00)
[2022-10-04] MEDS ORDERED: Sodium Chloride 0.9% 75 ML IV SCH (22:30)
[2022-10-04] MEDS ORDERED: Iopamidol 612 MG/ML 100 ML Bottle IV SCH (22:30)
[2022-10-04 22:36] LABS: ESTIMATED GFR 119 mL/min (>60)
[2022-10-04] MEDS ORDERED: Pantoprazole 40 MG Tab.CR PO ONE (23:48)
[2022-10-04] MEDS ORDERED: Ondansetron 4 MG/2 ML SDV IV PRN (23:52)
[2022-10-05] MEDS ORDERED: Acetaminophen 1,000 MG in Premix Bag 1 BAG IV PRN (00:01)
[2022-10-05 01:12] LABS: CORONAVIRUS COVID-19 NAA NEGATIVE (NEGATIVE)
[2022-10-05] MEDS: Sodium Chloride 0.9% 1,000 ML IV SCH ×2 (01:55→16:43)
[2022-10-05] MEDS ORDERED: Piperacillin/Tazobactam 3.375 GM in Sodium Chloride 0.9% 50 ML IV ONE (04:00)
[2022-10-05] MEDS ORDERED: Midazolam 1 MG/ML 2 ML SDV ONE (06:53)
[2022-10-05] MEDS ORDERED: fentaNYL 100 MCG/2 ML SDV ONE ×2 (06:53→07:30)
[2022-10-05] MEDS ORDERED: Propofol 200 MG/20 ML SDV ONE ×3 (06:53→07:39)
[2022-10-05] MEDS: HYDROmorphone 0.5 MG/0.5 ML Syringe IVPUSH PRN (07:08)
[2022-10-05] MEDS ORDERED: Lactated Ringers 1,000 ML ONE (07:26)
[2022-10-05] MEDS ORDERED: Succinylcholine 200 MG/10 ML MDV ONE (07:33)
[2022-10-05] MEDS ORDERED: Sodium Chloride 0.9% 10 ML ONE (07:35)
[2022-10-05] MEDS ORDERED: Meropenem 500 MG SDV ONE (07:35)
[2022-10-05] MEDS ORDERED: Meropenem 500 MG SDV IRR ONE (07:44)
[2022-10-05] MEDS: Meropenem 500 MG in Sodium Chloride 0.9% 50 ML IV SCH ×3 (08:33→20:57)
[2022-10-05] MEDS: Acetaminophen 500 MG Tab PO SCH ×3 (09:23→22:11)
[2022-10-05] MEDS: Linezolid 600 MG in Premix Bag 1 BAG IV SCH ×2 (10:38→22:11)
[2022-10-05] MEDS: HYDROmorphone 2 MG Tab PO PRN ×3 (11:03→23:33)
[2022-10-05] MEDS ORDERED: Levothyroxine 112 MCG Tab PO SCH (11:51)
[2022-10-05] MEDS: Potassium Chloride 10 MEQ in Premix Bag 1 BAG IV SCH ×6 (12:41→19:51)
[2022-10-05] MEDS ORDERED: Pantoprazole 40 MG Tab.CR PO SCH (13:00)
[2022-10-05] MEDS ORDERED: Famotidine 20 MG Tab PO PRN (14:06)
[2022-10-06] MEDS: HYDROmorphone 0.5 MG/0.5 ML Syringe IVPUSH PRN (00:28)
[2022-10-06] MEDS: Acetaminophen 500 MG Tab PO SCH ×5 (03:03→22:28)
[2022-10-06] MEDS: Meropenem 500 MG in Sodium Chloride 0.9% 50 ML IV SCH ×4 (03:03→19:57)
[2022-10-06] MEDS: Sodium Chloride 0.9% 1,000 ML IV SCH ×2 (04:54→14:42)
[2022-10-06 05:02] LABS: ESTIMATED GFR 124 mL/min (>60)
[2022-10-06] MEDS ORDERED: Naloxone 0.4 MG/ML SDV IV PRN (08:00)
[2022-10-06] MEDS: HYDROmorphone/Normal Saline 6 MG/30 ML PCA Vial IV PRN ×2 (08:16→19:01)
[2022-10-06] MEDS: Pantoprazole 40 MG Tab.CR PO SCH (08:21)
[2022-10-06] MEDS: Linezolid 600 MG in Premix Bag 1 BAG IV SCH ×2 (09:27→22:28)
[2022-10-07] MEDS: Sodium Chloride 0.9% 1,000 ML IV SCH ×2 (01:51→14:51)
[2022-10-07] MEDS: Meropenem 500 MG in Sodium Chloride 0.9% 50 ML IV SCH ×4 (01:51→19:49)
[2022-10-07] MEDS: Acetaminophen 500 MG Tab PO SCH ×4 (03:06→21:27)
[2022-10-07] MEDS: HYDROmorphone/Normal Saline 6 MG/30 ML PCA Vial IV PRN ×2 (03:53→13:48)
[2022-10-07] MEDS ORDERED: Sodium Chloride 0.9% 50 ML IV SCH (05:00)
[2022-10-07] MEDS ORDERED: Iopamidol 612 MG/ML 100 ML Bottle IV ONE (05:00)
[2022-10-07] MEDS ORDERED: Bupivacaine 0.5% 50 ML MDV ONE (06:27)
[2022-10-07] MEDS ORDERED: Meropenem 500 MG SDV ONE (06:27)
[2022-10-07] MEDS ORDERED: Lidocaine 1% with EPINEPHrine 1:100,000 50 ML MDV ONE (06:27)
[2022-10-07] MEDS ORDERED: Midazolam 1 MG/ML 2 ML SDV ONE (06:59)
[2022-10-07] MEDS ORDERED: fentaNYL 100 MCG/2 ML SDV ONE (06:59)
[2022-10-07] MEDS ORDERED: Propofol 200 MG/20 ML SDV ONE ×3 (06:59→07:54)
[2022-10-07] MEDS: Pantoprazole 40 MG Tab.CR PO SCH (09:38)
[2022-10-07] MEDS: Linezolid 600 MG in Premix Bag 1 BAG IV SCH ×2 (10:17→21:27)
[2022-10-07] MEDS ORDERED: Potassium Chloride 20 MEQ Tab.ER PO ONE (13:00)
[2022-10-08] MEDS: Meropenem 500 MG in Sodium Chloride 0.9% 50 ML IV SCH ×4 (03:10→19:31)
[2022-10-08] MEDS: Acetaminophen 500 MG Tab PO SCH ×4 (03:10→22:36)
[2022-10-08] MEDS: HYDROmorphone/Normal Saline 6 MG/30 ML PCA Vial IV PRN (04:44)
[2022-10-08] MEDS: Sodium Chloride 0.9% 1,000 ML IV SCH (04:46)
[2022-10-08] MEDS: Pantoprazole 40 MG Tab.CR PO SCH (08:10)
[2022-10-08] MEDS: Linezolid 600 MG in Premix Bag 1 BAG IV SCH ×2 (10:04→22:36)
[2022-10-08] MEDS: Potassium Chloride 20 MEQ Tab.ER PO SCH ×3 (10:36→20:28)
[2022-10-08] MEDS: Magnesium Sulfate/Water 2 GM/50 ML BAG IV SCH ×3 (13:29→20:28)
[2022-10-08] MEDS: HYDROmorphone 2 MG Tab PO PRN ×2 (16:01→22:36)
[2022-10-09] MEDS: Meropenem 500 MG in Sodium Chloride 0.9% 50 ML IV SCH ×2 (01:35→07:40)
[2022-10-09] MEDS: Magnesium Sulfate/Water 2 GM/50 ML BAG IV SCH ×2 (02:16→07:40)
[2022-10-09] MEDS: Acetaminophen 500 MG Tab PO SCH ×2 (03:56→10:44)
[2022-10-09 05:12] LABS: ESTIMATED GFR 119 mL/min (>60)
[2022-10-09] MEDS: Pantoprazole 40 MG Tab.CR PO SCH (07:40)
[2022-10-09] MEDS ORDERED: Levofloxacin 500 MG Tab PO SCH (09:00)
== END 2022-10-09 11:23 | disposition home or self-care (01) | DRG 988 ==
LOC: JP.ED 21:50 → JP.MS 10-05 00:26 → OBSVTOIN 10-05 08:00
PROVIDERS: ADMIT Family Medicine; ATTEND Surgery
PROC: 0U9G0ZZ Drainage of Vagina, Open Approach (ICD-10-PCS; principal; 2022-10-07)
DX: N99.820 Postprocedural hemorrhage of a genitourinary system organ or structure following a genitourinary system procedure (principal); Z68.41 Body mass index [BMI] 40.0-44.9, adult; K21.9 Gastro-esophageal reflux disease without esophagitis; I10 Essential (primary) hypertension; F41.9 Anxiety disorder, unspecified; F32.A Depression, unspecified; Z20.822 Contact with and (suspected) exposure to COVID-19; R50.9 Fever, unspecified; E66.01 Morbid (severe) obesity due to excess calories; D50.0 Iron deficiency anemia secondary to blood loss (chronic); E03.9 Hypothyroidism, unspecified; Z86.16 Personal history of COVID-19; Z90.721 Acquired absence of ovaries, unilateral; Z98.84 Bariatric surgery status; Z90.710 Acquired absence of both cervix and uterus; Z98.890 Other specified postprocedural states; Z87.891 Personal history of nicotine dependence; Y83.8 Other surgical procedures as the cause of abnormal reaction of the patient, or of later complication, without mention of misadventure at the time of the procedure; Y92.89 Other specified places as the place of occurrence of the external cause
CPT/HCPCS: 0241U; 36415; 36430; 74177; 80048; 80053; 81001; 83605; 83735; 84100; 85014; 85018; 85025; 85027; 85610; 86140; 86850; 86900; 86901; 86920; 86922; 87040; 87070; 87075; 87077; 87086; 87186; 87205; 88304; 90686; 96361; 96365; 96366; 96367; 96375; 96376; 99222; 99285; 99285-25; A9270-GY; G0378; J0330; J1170; J2020; J2185; J2250; J2543; J2704; J3010; J3475; J3480; J3490; J7030; J7120; P9016; Q9967

== ENCOUNTER 2023-02-10 17:15 | Emergency (ER) | payer MEDICAID ==
[2023-02-10] MEDS ORDERED: Ondansetron 4 MG/2 ML SDV IVPUSH ONE (18:47)
[2023-02-10 19:00] LABS: BASOPHILS ABSOLUTE AUTO 0.04 K/uL (0.00-0.10); BASOPHILS PERCENT AUTO 0.4 % (0.1-1.3); EOSINOPHILS ABSOLUTE AUTO 0.14 K/uL (0.00-0.40); EOSINOPHILS PERCENT AUTO 1.4 % (0.0-5.4); HEMATOCRIT 31.4 % (34.3-46.0); HEMOGLOBIN 10.5 g/dL (11.2-15.5); IMMATURE GRAN ABSOLUTE AUTO 0.04 K/uL (0.00-0.23); IMMATURE GRAN PERCENT AUTO 0.4 % (0.0-0.7); LYMPHOCYTES ABSOLUTE AUTO 2.67 K/uL (0.8-3.3); LYMPHOCYTES PERCENT AUTO 26.1 % (11.4-47.7); MEAN CORPUSCULAR HEMOGLOBIN 28.3 pg (31.6-35.5); MEAN CORPUSCULAR HGB CONC 33.4 g/dL (31.6-35.5); MEAN CORPUSCULAR VOLUME 84.6 fL (81.4-99.0); MONOCYTES ABSOLUTE AUTO 0.67 K/uL (0.20-0.90); MONOCYTES PERCENT AUTO 6.5 % (3.3-12.6); NEUTROPHILS ABSOLUTE AUTO 6.67 K/uL (1.0-7.6); NEUTROPHILS PERCENT AUTO 65.2 % (40.0-78.1); PLATELET COUNT,PLT 196 K/uL (130-375); RED BLOOD CELL COUNT 3.71 M/uL (3.77-5.24); WHITE BLOOD CELL COUNT,WBC 10.2 K/uL (3.2-11.0)
[2023-02-10] MEDS ORDERED: Sodium Chloride 0.9% 1,000 ML IV SCH (19:00)
[2023-02-10 19:15] LABS: CREATININE 0.7 mg/dL (0.6-1.0); EST CRCL DRUG DOSING (CG) 117.47 mL/min; POTASSIUM,K 3.4 mmol/L (3.6-5.2)
[2023-02-10 19:16] LABS: ANION GAP 11.4 mmol/L (5.0-14.0)
[2023-02-10] MEDS ORDERED: HYDROmorphone 1 MG/ML Syringe IVPUSH ONE (19:40)
== END 2023-02-10 20:10 | disposition home or self-care (01) ==
LOC: JP.ED 17:15
DX: R11.2 Nausea with vomiting, unspecified (principal); D50.0 Iron deficiency anemia secondary to blood loss (chronic); I10 Essential (primary) hypertension; K21.9 Gastro-esophageal reflux disease without esophagitis; E03.9 Hypothyroidism, unspecified; Z86.16 Personal history of COVID-19; Z88.8 Allergy status to other drugs, medicaments and biological substances; Z79.899 Other long term (current) drug therapy
CPT/HCPCS: 36415; 80048; 85025; 96361; 96374; 99284; J2405; J7030; 99283

== ENCOUNTER 2024-08-29 12:29 | Emergency (ER) | payer SELFPAY ==
[2024-08-29] MEDS: Cyclobenzaprine 10 MG Tab PO ONE (14:36)
== END 2024-08-29 15:38 | disposition home or self-care (01) ==
LOC: JP.ED 12:29
DX: M25.511 Pain in right shoulder (principal); I10 Essential (primary) hypertension; E03.9 Hypothyroidism, unspecified; Z88.8 Allergy status to other drugs, medicaments and biological substances; Z79.890 Hormone replacement therapy; Z79.899 Other long term (current) drug therapy; Z86.16 Personal history of COVID-19; Z90.710 Acquired absence of both cervix and uterus
CPT/HCPCS: 73030; 99283; A9270